=== PATIENT | female | born 2000 | race Caucasian/White ===

== ENCOUNTER 2020-05-29 22:18 | Emergency (ER) | payer OTHER ==
[~2020-05-29] VITALS: Ht 162.6 cm; Wt 86.2 kg
[2020-05-29] MEDS ORDERED: MELOXICAM7.5 MG PO (22:39)
[2020-05-29 23:21] LABS: HEMATOCRIT 39.5 % (37.0-47.0); HEMOGLOBIN 13.2 gm/dL (12.0-15.0); MCH 27.7 pg (26.0-34.0); MCHC 33.4 g/dL (28.0-37.0); MPV 7.4 fl. (7.2-11.1); RBC 4.76 mil/uL (4.20-5.00); RDW-CV 14.9 % (10.5-14.5); WBC 6.3 thou/uL (4.0-11.0)
[2020-05-29 23:25] LABS: CALCIUM 8.7 mg/dL (8.5-10.1); CREATININE 0.7 mg/dL (0.6-1.3); POTASSIUM 3.5 mmol/L (3.5-5.1)
[2020-05-29 23:26] LABS: PROTIME 10.6 Seconds (9.20-11.50)
[2020-05-29 23:30] LABS: ALBUMIN 3.8 g/dL (3.4-5.0); TOTAL BILIRUBIN 0.2 mg/dL (<0.1-1.0); TOTAL PROTEIN 7.1 g/dL (6.4-8.2)
[2020-05-30] MEDS ORDERED: OMEPRAZOLE 20 M20 M1 PO (00:21)
[2020-05-30] MEDS ORDERED: CARAFATE 1 GM TA1 GM PO (00:21)
[2020-05-30 00:55] VITALS: BP 132/71
--- NOTE | 2020-05-30 13:16 | EKG ---
[place] [address] ELECTROCARDIOGRAM REPORT Name: SILVANO CANTRELL Room: [facility]#: [id number] Admission: 05/29/20 Attend Phys: Discharge: 05/30/20 Date of : 89 Date of Service: 05/29/202223 Report #: [id number] THIS REPORT FOR: //name// [facility] ED Test Date: 2020-05-29 Test Time: 22:24:10 Pat Name: SILVANO CANTRELL Department: Room: Gender: F Sr Account Executive: : 2000 Requested By: Frances Gonzalez Order Number: [id number] MD: Damon Rudolph Measurements Intervals [place] Rate: 99 P: 57 MT: 154 QRS: 70 QRSD: 80 T: -7 QT: 328 QTc: 421 Interpretive Statements Sinus rhythm Borderline repolarization abnormality Baseline wander in lead(s) V6 No previous ECG available for comparison Electronically Signed On 05-30-2020 13:16:17 INVESTMENT COUNSELOR by Damon Rudolph [email or web address] <ELECTRONICALLY SIGNED> By: Damon Rudolph MD, FACC 05/30/20 1316 23 Damon Rudolph MD, [facility] /EPI
== END 2020-05-30 00:55 | disposition home or self-care (01) ==
LOC: M.ERS 22:18
PROVIDERS: Personal Emergency Response Attendant
DX: R07.89 Other chest pain (principal); R11.0 Nausea; Z79.899 Other long term (current) drug therapy; Z20.828 Contact with and (suspected) exposure to other viral communicable diseases